=== PATIENT | female | born 1975 | race Caucasian/White ===

== ENCOUNTER 2018-08-04 11:44 | Inpatient (IN) | payer OTHER ==
[~2018-08-04] VITALS: Ht 162.6 cm; Wt 152.0 kg
[2018-08-04] VITALS (21 sets, daily range): BP systolic 127–165; BP diastolic 90–119
[2018-08-04] MEDS ORDERED: SODIUM CHLORIDE 0.9% 1000ML 1,000 ML IV STA (12:19)
[2018-08-04 13:06] LABS: BASOPHILS # (AUTO) 0.1 (0.0-0.1); BASOPHILS % 0.3 % (0.0-1.0); EOSINOPHILS # (AUTO) 0.5 (0.0-0.4); EOSINOPHILS % 1.7 % (0.0-6.0); HEMATOCRIT 28.9 % (34.2-44.1); HEMOGLOBIN 9.4 g/dL (12.0-16.0); LYMPHOCYTES % 3.6 % (18.0-39.1); MEAN CORPUSCULAR HEMOGLOBIN 29.2 pg (28-32); MEAN CORPUSCULAR HGB CONC 32.5 g/dL (31-35); MEAN CORPUSCULAR VOLUME 89.8 fL (81-99); MONOCYTES # (AUTO) 1.3 (0.2-0.8); MONOCYTES % 4.6 % (4.4-11.3); NEUTROPHILS % 86.7 % (38.7-80.0); PLATELET COUNT 520 x10e3/uL (140-360); RED BLOOD COUNT 3.22 x10e6/uL (3.6-5.1); RED CELL DISTRIBUTION WIDTH 14.1 % (11.7-14.4)
[2018-08-04 13:25] LABS: BAND NEUTROPHILS % (MANUAL) 2 %; EOSINOPHILS % (MANUAL) 2 % (0-7); LYMPHOCYTES % (MANUAL) 5 % (19-48); MONOCYTES % (MANUAL) 4 % (3.4-9.0); NEUTROPHILS % (MANUAL) 87 % (40-74); RBC MORPHOLOGY COMMENT NORMAL
[2018-08-04 13:26] LABS: PLATELET ESTIMATE ADEQUATE; PLATELET MORPHOLOGY COMMENT NORMAL
[2018-08-04 13:32] LABS: ALBUMIN 2.1 g/dL (3.5-5.0); ALBUMIN/GLOBULIN RATIO 0.4 (0.8-2.0); ANION GAP 31.8 mmol/L (8-16); CREATININE, SERUM 24.97 mg/dL (0.57-1.11); POTASSIUM 5.8 mmol/L (3.5-5.1)
[2018-08-04 13:42] LABS: CALCIUM 6.7 mg/dL (8.4-10.2)
[2018-08-04] MEDS ORDERED: SODIUM BICARBONATE 8.4% INJ 50 ML SYR IV STA (14:04)
--- NOTE | 2018-08-04 14:18 | Diagnostic Imaging Report ---
History: Altered mental status, slurred speech Comparison studies: None Technique: Axial images were obtained from the skull base to the vertex. Coronal and sagittal reconstructions obtained from the axial data. Dose modulation, iterative reconstruction, and/or weight based adjustment of the mA/kV was utilized to reduce the radiation dose to as low as reasonably achievable. Findings: Scalp/skull: No abnormalities. No fractures, blastic or lytic lesions. Extra-axial spaces: No masses. No fluid collections. Brain sulci: Appropriate for age. Ventricles: Normal in size and configuration. No hydrocephalus. Parenchyma: No abnormal densities. No masses, hemorrhage, acute or chronic cortical vascular insults. Sellar/suprasellar region: No abnormalities Craniocervical junction: Patent foramen magnum. No Chiari one malformation. IMPRESSION: No abnormalities. Signed by: Dr. Braden Lafleur M.D. on 08/04/2018 2:15 PM
--- NOTE | 2018-08-04 14:37 | Diagnostic Imaging Report ---
Examination: Single AP view of the chest. COMPARISON: None. INDICATION: Slurred speech, shortness of breath IMPRESSION: 1. Lines and Tubes: None 2. Lungs are grossly clear. No consolidation or effusion. 3. Cardiomediastinal silhouette is normal. Pulmonary vasculature is normal. 4. No acute bony abnormalities. Signed by: Dr. Connor Gilliam M.D. on 08/04/2018 2:33 PM
[2018-08-04] MEDS: SODIUM BICARBONATE 8.4% 150 ML in DEXTROSE 5% 1,000 ML IV SCH (15:41)
[2018-08-04 15:54] LABS: ABG HCO3 10 mmol/L (23-28); ABG PCO2 24 mmHg (41-51); ABG PH 7.25 (7.31-7.41); ABG PO2 89 mmHg (80-105)
[2018-08-04 16:02] LABS: CLARITY,URINE SL CLOUDY (CLEAR); COLOR,URINE YELLOW (YELLOW)
[2018-08-04 16:04] LABS: BILIRUBIN,URINE NEGATIVE (NEGATIVE); KETONES,URINE NEGATIVE (NEGATIVE); LEUKOCYTE ESTERASE ,URINE 2+ (NEGATIVE); NITRITE,URINE POSITIVE (NEGATIVE); PROTEIN,URINE DIPSTICK 3+ (NEGATIVE); URINE UROBILINOGEN 0.2 mg/dL (0.2 - 1)
--- NOTE | 2018-08-04 16:04 | Diagnostic Imaging Report ---
Examination: Single AP view of the chest. COMPARISON: Portable chest 08/04/2018 INDICATION: Central line placement IMPRESSION: 1. Lines and Tubes: Interval placement of right-sided subclavian approach central line, with distal tip projecting at the mid SVC. 2. Lungs are grossly clear. No consolidation or effusion. 3. Cardiomediastinal silhouette is normal. Pulmonary vasculature is normal. 4. No acute bony abnormalities. Signed by: Dr. Connor Gilliam M.D. on 08/04/2018 4:00 PM
[2018-08-04 16:10] LABS: AMPHETAMINES SCREEN,URINE NEGATIVE (NEGATIVE); PHENCYCLIDINE SCREEN,URINE NEGATIVE (NEGATIVE)
[2018-08-04 16:11] LABS: BENZODIAZEPINES SCREEN,URINE NEGATIVE (NEGATIVE)
[2018-08-04] MEDS ORDERED: SOD POLYSTYRENE SULFONATE SUSP 15 GM/60 ML BTL PO ONE (16:15)
[2018-08-04 16:22] LABS: WBC,URINE (MAN) >50 /HPF (0-5)
[2018-08-04 16:23] LABS: BACTERIA,URINE MODERATE /HPF; EPITHELIAL CELLS,URINE FEW /LPF; MUCUS,URINE FEW (RARE); RBC,URINE >50 /HPF (0-5)
[2018-08-04] MEDS ORDERED: MORPHINE SULFATE 2 MG/ML SYR IV PRN (17:00)
[2018-08-04] MEDS ORDERED: SODIUM BICARBONATE 8.4% SYRING 150 ML in DEXTROSE 5% 1,000 ML IV SCH (17:00)
[2018-08-04] MEDS ORDERED: ONDANSETRON HCL INJ 2 MG/ML VIAL IV PRN (17:00)
[2018-08-04] MEDS ORDERED: CEFTRIAXONE SOD 1 GM VIAL ONE (17:18)
--- OUTSIDE RECORDS SUMMARY | 2018-08-04 17:20 | XMS REPORT ---
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 Allergies, Adverse Reactions, Alerts This patient has no known allergies or adverse reactions. Medications This patient has no known medications. Results Test Description Test Time Test Comments Text Results Atomic Results Result Comments CHEST XRAY LINE PLACEMENT 2018-08-04 15:54:00 [place] [address] Patient Name: IRA BROCK MR #: [id number] : 1975 Age/Sex: 43/F Req #: [id number] [facility] Physician: Ordered by: YASMEEN FLORES MD Report #: [id number] Location: ER Room/Bed: Procedure: [id number] DX/CHEST XRAY LINE PLACEMENT Exam Date: 08/04/18 Exam Time: 1525 REPORT STATUS: Signed Examination: Single AP view of the chest. CO MPARISON: Portable chest 08/04/2018 INDICATION: Central line placement IMPRESSION: 1. Lines and Tubes: Interval placement of right-sided subclavian approach central line, with distal tip projecting at the mid SVC. 2. Lungs are grossly clear. No consolidation or effusion. 3. Cardiomediastinal silhouette is normal. Pulmonary vasculature is normal. 4. No acute bony abnormalities. Signed by: Angelo Mondragon.D. on 08/04/2018 4:00 PM Dictated By: MICHELINE GILLIAM MD 99 Transcribed By: BETH on 08/04/181599 COPY TO: YASMEEN FLORES MD CHEST SINGLE (PORTABLE) 2018-08-04 14:33:00 [place] [address] Patient Name: IRA BROCK MR #: [id number] : 1975 Age/Sex: 43/F Req #: [id number] Adm Physician: Ordered by: YASMEEN FLORES MD Report #: [id number] Location: ER Room/Bed: Procedure: [id number] DX/CHEST SINGLE (PORTABLE) Exam Date: 08/04/18 Exam Time: 1400 REPORT STATUS: Signed Examination: Single AP view of the chest. COMP ARISON: None. INDICATION: Slurred speech, shortness of breath IMPRESSION: 1. Lines and Tubes: None 2. Lungs are grossly clear. No consolidation or effusion. 3. Cardiomediastinal silhouette is normal. Pulmonary vasculature is normal. 4. No acute bony abnormalities. Signed by: Dr. Micheline Gilliam M.D. on 08/04/2018 2:33 PM Dictated By: MICHELINE GILLIAM MD 32 Transcribed By: BETH on 08/04/18 143 COPY TO: YASMEEN FLORES MD CT BRAIN WO 2018-08-04 14:14:00 [place] [address] Patient Name: IRA BROCK #: [id number] : 1975 Age/Sex: 43/F Req #: [id number] [facility] Physician: Ordered by: YASMEEN FLORES MD Report #: [id number] Location: Room/Bed: Procedure: [id number] CT/CT BRAIN WO Exam Date: Exam Time: REPORT STATUS: Signed History: Altered mental status, slurred speech Comparison studies: None Technique: Axial images were obtained from the skull base to the vertex. Coronal and sagittal reconstructions obtained from the axial data. Dose modulation, iterative reconstruction, and/or weight based adjustment of the mA/kV was utilized to reduce the radiation dose to as low as reasonably achievable. Findings: Scalp/skull: No abnormalities. No fractures, blastic or lytic lesions. Extra-axial spaces: No masses. No fluid collections. Brain sulci: Appropriate for age. Ventricles: Normal in size and configuration. No hydrocephalus. Parenchyma: No abnormal densities. No masses, hemorrhage, acute or chronic cortical vascular insults. Sellar/suprasellar region: No abnormalities Craniocervical junction: Patent foramen magnum. No Chiari one malformation. IMPRESSION: No abnormalities. Signed by: Dr. Braden Lafleur M.D. on 08/04/2018 2:15 PM Dictated By: BRADEN LAFLEUR MD, MD 14 Transcribed By: BETH on 08/04/181414 COPY TO: YASMEEN FLORES MD
[2018-08-04] MEDS: CEFTRIAXONE SOD 1 GM VIAL IV SCH (17:21)
--- NOTE | 2018-08-04 18:03 | Diagnostic Imaging Report ---
Examination: Single AP view of the chest. COMPARISON: Chest AP 08/04/2018 INDICATION: Trialysis insertion IMPRESSION: 1. Lines and Tubes: Interval placement of right-sided subclavian approach catheter, with distal tip projecting in the proximal SVC. 2. Lungs are grossly clear. No consolidation or effusion. No pneumothorax is visualized. 3. Cardiomediastinal silhouette is grossly normal. Pulmonary vasculature is normal. 4. No acute bony abnormalities. Signed by: Dr. Connor Gilliam M.D. on 08/04/2018 5:59 PM
[2018-08-04 18:13] LABS: THYROID STIMULATING HORMONE 8.73 uIU/mL (0.350-4.940)
[2018-08-04] MEDS ORDERED: BACLOFEN10 MG PO (18:37)
[2018-08-04] MEDS ORDERED: LEVOTHYROXINE50 MCG PO (18:37)
[2018-08-04] MEDS ORDERED: TYLENOL WITH C1 EACH PO (18:37)
[2018-08-04] MEDS ORDERED: GABAPENTIN300 MG PO (18:37)
--- NOTE | 2018-08-04 20:33 | Diagnostic Imaging Report ---
EXAM: CT ABDOMEN/PELVIS WO DATE: 08/04/2018 4:47 PM INDICATION: ^severe back pain acute renal failure uti ^[id number] ^2009 ^Y COMPARISON: None TECHNIQUE: The abdomen and pelvis were scanned using a multidetector helical scanner. Coronal and sagittal reformations were obtained. CT low dose techniques were utilized, as applicable. IV Contrast: 0 ml Isovue 300/370 FINDINGS: Lack of IV contrast decreases sensitivity in evaluating abdominal and pelvic organs. Image quality is degraded by photon starvation related to body habitus. LOWER THORAX: No consolidations LIVER/BILIARY: Unremarkable noncontrast appearance. GALLBLADDER: Surgically absent SPLEEN: Unremarkable PANCREAS: Unremarkable ADRENALS: No nodules KIDNEYS: No stones. No hydronephrosis. Nonspecific bilateral perinephric/retroperitoneal stranding. GI TRACT: No evidence of bowel obstruction. Diffuse fluid filled small bowel and colon. VESSELS: Unremarkable PERITONEUM/RETROPERITONEUM: No free air or fluid LYMPH NODES: There are scattered nonspecific prominent retroperitoneal nodes. REPRODUCTIVE ORGANS/BLADDER: Bladder is decompressed with a Moreno catheter. Pelvic organs grossly unremarkable. BONES: Scattered degenerative changes, worse at L5-S1. IMPRESSION: Evaluation degraded by lack of IV contrast and photon starvation. 1. No evidence of obstructive uropathy. 2. Findings which can be seen with enterocolitis in the proper clinical setting. Signed by: Dr Ness Sotelo MD on 08/04/2018 8:29 PM
--- NOTE | 2018-08-04 21:22 | Diagnostic Imaging Report ---
EXAM: US RENAL RETROPERITONEAL COMP INDICATION: ^ibeth vs ckd? ^[id number] ^1999 COMPARISON: None TECHNIQUE: Transverse and longitudinal images of the kidneys and bladder were obtained. FINDINGS: Sonographic evaluation and visualization is degraded by body habitus. Right Kidney: Length: 11.5 cm Appearance: Upper limits of normal echogenicity. Collecting system: No hydronephrosis Stones: None Cyst/Mass: None Left Kidney: Length: 11.4 cm Appearance: Upper limits of normal echogenicity. Collecting system: No hydronephrosis Stones: None Cyst/Mass: Questionable hypoechoic or cystic lesion of the left kidney measuring 1.6 x 2.0 x 1.8 cm. Bladder: Not visualized. Patient reportedly has a Moreno. IMPRESSION: Sonographic evaluation degraded by body habitus. 1. No hydronephrosis. Signed by: Dr Ness Sotelo MD on 08/04/2018 9:19 PM
[2018-08-04] MEDS ORDERED: SODIUM CHLORIDE 0.9% 1000ML 2,000 ML ONE (21:41)
[2018-08-04] MEDS ORDERED: MANNITOL 25% 12.5GM/50ML 100 ML ONE (21:51)
[2018-08-04] MEDS ORDERED: SODIUM CHLORIDE 0.9% 1000ML 1,000 ML IV PRN (22:00)
[2018-08-04] MEDS ORDERED: ALBUMIN 25% 12.5GM 0.25 GM/ML BTL IV PRN (22:00)
[2018-08-04] MEDS ORDERED: HEPARIN SOD (PORCINE) 5,000 UNIT/ML VIAL IV PRN (22:00)
[2018-08-04] MEDS ORDERED: MANNITOL 25% 12.5GM/50 ML VIAL IV PRN (22:00)
[2018-08-04] MEDS ORDERED: HEPARIN SOD (PORCINE) 1000 UNIT/ML SDV ONE (23:40)
[2018-08-05] VITALS (69 sets, daily range): BP systolic 103–196; BP diastolic 59–131
[2018-08-05] MEDS: SODIUM BICARBONATE 8.4% 150 ML in DEXTROSE 5% 1,000 ML IV SCH (01:59)
--- NOTE | 2018-08-05 02:07 | Consultation ---
DATE OF CONSULTATION: August 04, 2018 NEPHROLOGY CONSULTATION CHIEF COMPLAINT: Altered mental status. HISTORY OF PRESENT ILLNESS: This is a 43-year-old female morbidly obese with past medical history of chronic back pain, underlying hypothyroidism, who is very noncompliant in following up with her primary care physician at [facility], who comes in with altered mental status that has been ongoing since Monday of this week. According to the mother at bedside, she was recently seen by her PCP on Monday and was given significant amount of pain medications including gabapentin as well as a muscle relaxant and since then according to the mother, the patient has been very confused and and has not been eating or drinking. There are no reports of any chest pain, palpitation, nausea or vomiting. Patient is currently at bedside in the ICU, very dazed and minimally responsive. Patient last had labs about a year ago at [facility] but since then she has not had any other labs. There are no reports of any hematuria or any dysuria in the past. Patient was seen and evaluated at bedside in the ICU currently, altered and confused and on exam, vital signs were stable. REVIEW OF SYSTEMS: Pertinent positives: According to the mother, she has altered mental status and metabolic encephalopathy. I am unable to obtain the rest of the 14-point review of systems as the patient is currently confused. LAB FINDINGS: White count 27.6, hemoglobin 9.8, hematocrit 28.9, platelets of 520. Chemistry: Sodium 133, potassium is 5.8, chloride is 99, bicarb is 7, anion gap of 31.8, BUN 129, creatinine is 25, lactic acid 7.6, calcium 6.7, total bilirubin 0.48, AST 13, ALT 10, alk phos 82, total protein 6.8, albumin 2.1. TSH is 8.7. Urinalysis shows 4+ blood, positive nitrite, 3+ protein, greater than 50 rbc's, greater than 50 wbc's, 2+ leukocyte esterase, moderate bacteria. Urine drug screen was positive for opioids. Microbiology: Urine and blood cultures are pending. IMAGING STUDIES: Chest x-ray showed no acute findings. CT brain was negative. Repeat chest x-ray was found to be negative as well; this was post tunneled dialysis catheter. PHYSICAL EXAMINATION: VITAL SIGNS: Temperature is 98.3, pulse 103, respiratory rate is 18, blood pressure 146/94, pulse oximetry 98% on room air. GENERAL: Alert but not oriented at all. HEENT: Head is normocephalic and atraumatic. Eyes; pupils are equal, round and reactive to light bilaterally. Extraocular movements are intact bilaterally. Throat, no evidence of erythema or exudates in the posterior pharynx. Has poor dentition. NECK: Supple. Good range of motion. PULMONARY: Clear to auscultation bilaterally. No wheezing, no rales, no rhonchi, no crackles appreciated. CARDIOVASCULAR: Positive S1 and S2. No murmurs, rubs or gallops appreciated. ABDOMEN: Soft, nondistended, nontender to palpation. Bowel sounds are present. MUSCULOSKELETAL: Unable to assess. She is currently not responsive and not cooperative. NEUROLOGIC: Unresponsive and uncooperative. SKIN: Intact. Warm to touch. Good capillary refill. PSYCHIATRIC: Normal affect and mood. EXTREMITIES: No edema. Good range of motion throughout. IMPRESSION: 1. Metabolic encephalopathy likely due to underlying gabapentin and pain control as well as muscle relaxant that she was taking for chronic back pain. 2. Acute kidney injury versus chronic kidney disease, unknown etiology. 3. Anemia. 4. Metabolic acidosis. 5. Mild hyperkalemia. 6. Uremia. 7. Sepsis with unknown etiology. PLAN: At this time, it seems like the patient also has underlying sepsis with elevated white count as well. She is currently on IV Rocephin for possible UTI. In relation to renal, a tunneled dialysis catheter was placed and she will receive her first hemodialysis this evening as well as treatment in the morning. Patient's underlying encephalopathy could be from drug overdose which will be hopefully cleared with dialysis, and we will be able to evaluate her mental status. With the creatinine of 25, it is concerning that she may have underlying chronic disease as well as her hemoglobin being very low. She was given Kayexalate in the ER. She will receive hemodialysis with the blood flow rate of 200 mL per minute and dialysate flow rate 400 mL per minute, 2K bath, 3 calcium, UF of 0, duration 2 hours and repeat tomorrow in the morning. Use Mannitol 12.5 grams before and during treatment. We are going to monitor for urine output. I am going to get a renal ultrasound. There is no urine to get urine electrolytes and urine protein to creatinine at this time. Again, I do not know if this is chronic disease versus acute in nature, but I will be able to determine that over the next several days. Job#: [id number] SUNIL
[2018-08-05] MEDS ORDERED: HYDRALAZINE HCL 20 MG/ML VIAL IV PRN (03:45)
[2018-08-05 08:03] LABS: BASOPHILS % 0.1 % (0.0-1.0); EOSINOPHILS # (AUTO) 0.5 (0.0-0.4); EOSINOPHILS % 2.2 % (0.0-6.0); HEMOGLOBIN 7.4 g/dL (12.0-16.0); LYMPHOCYTES # (AUTO) 0.6 (1.0-3.2); MEAN CORPUSCULAR HEMOGLOBIN 28.6 pg (28-32); MEAN CORPUSCULAR HGB CONC 33.8 g/dL (31-35); MEAN CORPUSCULAR VOLUME 84.6 fL (81-99); MONOCYTES # (AUTO) 1.3 (0.2-0.8); MONOCYTES % 6.4 % (4.4-11.3); NEUTROPHILS # (AUTO) 17.9 (2.1-6.9); NEUTROPHILS % 85.9 % (38.7-80.0); PLATELET COUNT 407 x10e3/uL (140-360); RED BLOOD COUNT 2.59 x10e6/uL (3.6-5.1); RED CELL DISTRIBUTION WIDTH 13.7 % (11.7-14.4)
[2018-08-05 08:06] LABS: HEMATOCRIT 21.9 % (34.2-44.1)
[2018-08-05 08:24] LABS: ALBUMIN 1.6 g/dL (3.5-5.0); ALBUMIN/GLOBULIN RATIO 0.4 (0.8-2.0); ANION GAP 23.4 mmol/L (8-16); CREATININE, SERUM 18.41 mg/dL (0.57-1.11); POTASSIUM 3.4 mmol/L (3.5-5.1)
[2018-08-05 08:26] LABS: CALCIUM 6.2 mg/dL (8.4-10.2)
[2018-08-05] MEDS ORDERED: SODIUM CHLORIDE 0.9% 250ML 250 ML IV ONE (09:45)
[2018-08-05] MEDS ORDERED: CALCIUM GLUCONATE 10% INJ 9.3 MEQ in SODIUM CHLORIDE 0.9% 100 ML 100 ML IV ONE (10:00)
[2018-08-05 10:03] LABS: BAND NEUTROPHILS % (MANUAL) 2 %; EOSINOPHILS % (MANUAL) 4 % (0-7); LYMPHOCYTES % (MANUAL) 5 % (19-48); MONOCYTES % (MANUAL) 4 % (3.4-9.0); NEUTROPHILS % (MANUAL) 85 % (40-74)
[2018-08-05 10:04] LABS: PLATELET ESTIMATE MODERATELY INCREASED; PLATELET MORPHOLOGY COMMENT NORMAL; RBC MORPHOLOGY COMMENT NORMAL
[2018-08-05] MEDS: LEVOTHYROXINE SODIUM 75 MCG TAB PO SCH (11:30)
[2018-08-05 11:54] LABS: FERRITIN 376.87 ng/mL (4.63-204.00)
[2018-08-05 12:13] LABS: HIV 1&2 AB SCREEN NON-REACTIVE (NONREACTIVE)
--- NOTE | 2018-08-05 12:47 | Progress Note ---
DATE: August 05, 2018 NEPHROLOGY PROGRESS NOTE SUBJECTIVE: Patient is much more alert and oriented x3 on exam today. She did receive her first HD treatment last night and which she tolerated well. OBJECTIVE VITAL SIGNS: Temperature is 99, pulse is 102, respiratory rate is 18, blood pressure 149/89, pulse ox 100% on 3 L nasal cannula. LAB FINDINGS: Show a white count of 20.7, hemoglobin 7.4, hematocrit is 22, platelets of 407. Chemistry, sodium 140, potassium 3.4, chloride 98, bicarb 22, anion gap of 23, BUN 98, creatinine is 18.4, lactic acid 7.6, calcium is 6.2, total bilirubin is 0.5, AST is 13, ALT 6, alk phos 113. Ammonia level was 73, total protein 5.2, albumin is 1.6, TSH 8.7. MICROBIOLOGY: Blood and urine cultures are pending. IMAGING STUDIES: CT abdomen and pelvis showed no evidence of obstructive uropathy. There is evidence of some minimal colitis. Otherwise, no other acute findings seen. PHYSICAL EXAMINATION GENERAL: Not in acute distress, alert and oriented x3, cooperative on exam. HEENT: Head: Normocephalic, atraumatic. Eyes: Pupils equal, round, and reactive to light bilaterally. Extraocular movements intact bilaterally. Throat: No evidence of any erythema or exudates in the posterior pharynx. Has poor dentition. NECK: Supple with good range of motion. PULMONARY: Clear to auscultation bilaterally. No wheezing, no rales, no rhonchi, no crackles appreciated. CARDIOVASCULAR: Positive S1 and S2. No murmurs, rubs, or gallops appreciated. ABDOMEN: Soft, nondistended, nontender to palpation. Bowel sounds present. MUSCULOSKELETAL: Strength is 5/5 throughout. No evidence of any musculoskeletal deficit on examination. No weakness appreciated. NEUROLOGICAL: Cranial nerves II through XII are grossly intact. No evidence of any neurological deficits on exam. SKIN: Intact. Warm to touch. Good cap refill. PSYCHIATRIC: Normal affect and mood. EXTREMITIES: 2+ pedal edema in bilateral lower extremities. IMPRESSION 1. Metabolic encephalopathy, concern for lichen polypharmacy. 2. Acute kidney injury versus chronic kidney disease, stage 5. 3. Anemia. 4. Metabolic acidosis. 5. Hyperkalemia, resolved. 6. Uremia. 7. Sepsis, possible underlying refraction, unknown etiology. 8. Hypoalbuminemia. PLAN: At this time, looking at her albumin level of 1.6, concerns me that the patient likely has some underlying nephrotic-range proteinuria; and currently, I do not know exactly what she currently has. I have on labs to compare in which tomorrow we are going to contact [facility] to see if there were any labs in the last 1 year. Her urine output is 0. I am unable to quantify her urine protein to creatinine or microalbumin to creatinine. At this time, I will order several serologies including double-stranded DNA, anti-GBM, p-ANCA and c-ANCA complements as well as scleroderma, hepatitis panel, HIV panel, and repeat labs in the morning. I will also get a UA with microscopy to rule out any kind of cast, but currently there is no urine, urine protein to creatinine, microalbumin to creatinine ratio. In terms of her anemia, we are going to get ferritin, iron saturation, and TIBC. In relation to her bone mineral disease, I am going to get intact PTH, phosphorus levels, and vitamin D level. We are going to stop the bicarb drip as her bicarb is much improved. Her potassium improved as well. She will receive dialysis later today with a 3K bath, 3.5 calcium, duration is going to be 2.5 hours, UF of 2 L, bicarb of 35, and we will give dialysis tomorrow again. Some time later this week, we may consider getting a renal biopsy, but she may be a very difficult candidate due to her morbid obesity and difficulty to get a biopsy performed. I will discuss this with the IR later this week. She will also get Mannitol pre and during treatment on HD today. Otherwise, I discussed the overall plan of care with the mother and patient at bedside. Job#: [id number] LPA
--- NOTE | 2018-08-05 14:34 | History and Physical ---
CHIEF COMPLAINT: Shortness of breath, acute renal failure, altered mental status, and uremia. HISTORY OF PRESENT ILLNESS: Patient is a 43-year-old female, who came into the hospital with altered mental status and very confused. The patient was in severe metabolic acidosis. She is at baseline with only hypothyroidism. The patient has unknown history of kidney failure, but when she came in she has profound kidney failure with uremia, hyperkalemia associated with metabolic acidosis, and a Moreno catheter was placed. There was no urine output. Patient is morbidly obese. She just recently saw her primary care physician and because of the complain of lower back pain, she went and saw pain management. She was given gabapentin, Tylenol Number 3, and muscle relaxer. Those medications may contribute to some confusion, but her medication side effect no significant on renal failure. The patient does not have a known renal failure in the past, but again her last blood work was at [facility] in [place] greater than a year ago. The patient is otherwise stable and admitted to the ICU for further evaluation and treatment. Dialysis will be initiated. PAST MEDICAL HISTORY: Morbid obesity, osteoarthritis, hypothyroidism. PAST SURGICAL HISTORY: Noncontributory. SOCIAL HISTORY: Patient lives with her mother. She does not smoke or use alcohol. No illegal drugs. ALLERGIES: PENICILLIN. HOME MEDICATIONS: Levothyroxine, gabapentin, Tylenol Number 3, and Flexeril. PHYSICAL EXAMINATION VITAL SIGNS: Temperature is 98. Blood pressure 165/102, pulse rate 111, and respiration 20. GENERAL: The patient is confused, but awake. HEENT: Normocephalic, atraumatic, and anicteric. NECK: Supple grossly. PULMONARY: Diminished breath sounds bilaterally. CARDIOVASCULAR: S1, S2. Tachycardia. ABDOMEN: Morbidly obese. EXTREMITIES: No cyanosis or edema. NEUROLOGIC: Confusion. LABORATORY: WBC 27.6, hemoglobin 9.4, hematocrit 28.9, and platelets 520. Chemistries; sodium is 132, potassium 5.8, chloride 99, bicarb 7, BUN is 129, creatinine 25, glucose is 82. Calcium level is 6.7, lactic acid level was 7.6, TSH is 8.7, and ammonia level is 73. Toxicology negative other than positive for opioid screen. Urinalysis is 2+ leukocyte esterase, greater than 50 WBCs, moderate bacteria. Serology, hepatitis pending. IMAGING: Abdominal and pelvic CT scan that was done show no evidence of obstructive uropathy. Chest x-ray, no acute bony abnormality. Line and tube in place. Pulmonary vasculature is normal. IMPRESSION 1. End-stage renal disease. We will require initiation of dialysis. The etiology of renal failure is unknown at this time. 2. Morbidly obese. 3. Hypothyroidism. 4. Hypertensive urgency. 5. Severe metabolic acidosis. 6. Multiple chronic baseline problems. PLAN: Dialysis. Workup for renal failure. Supportive measures. Antibiotics. We will monitor the patient closely at this time. Job#: [id number] WILBER
[2018-08-05] MEDS ORDERED: HEPARIN SOD (PORCINE) 1000 UNIT/ML SDV ONE (14:39)
[2018-08-05] MEDS: NIFEDIPINE CR 30 MG TAB PO SCH (16:30)
[2018-08-05] MEDS ORDERED: DOCUSATE SODIUM LIQD 100 MG/10 ML UDC NG ONE (17:00)
[2018-08-05] MEDS: CEFTRIAXONE SOD 1 GM VIAL IV SCH (17:45)
[2018-08-05] MEDS: HEPARIN SOD (PORCINE) 5,000 UNIT/ML VIAL SC SCH (21:10)
[2018-08-05 21:22] LABS: CLARITY,URINE CLOUDY (CLEAR); COLOR,URINE YELLOW (YELLOW); KETONES,URINE NEGATIVE (NEGATIVE); LEUKOCYTE ESTERASE ,URINE 2+ (NEGATIVE); NITRITE,URINE NEGATIVE (NEGATIVE); PROTEIN,URINE DIPSTICK 3+ (NEGATIVE); URINE UROBILINOGEN 0.2 mg/dL (0.2 - 1)
[2018-08-05 21:23] LABS: BILIRUBIN,URINE NEGATIVE (NEGATIVE)
[2018-08-05 21:34] LABS: BACTERIA,URINE MANY /HPF; EPITHELIAL CELLS,URINE RARE /LPF; WBC,URINE (MAN) >50 /HPF (0-5)
[2018-08-05 21:53] LABS: TOTAL PROTEIN, URINE 1910.9 mg/dL (1-14)
[2018-08-06] VITALS (63 sets, daily range): BP systolic 101–156; BP diastolic 57–105
[2018-08-06 05:00] LABS: ALBUMIN 1.6 g/dL (3.5-5.0); ALBUMIN/GLOBULIN RATIO 0.4 (0.8-2.0); ANION GAP 23.6 mmol/L (8-16); CHOL/HDL RATIO 2.8 (3.0-3.6); CREATININE, SERUM 15.23 mg/dL (0.57-1.11); PHOSPHORUS 9.4 MG/DL (2.3-4.7); POTASSIUM 3.6 mmol/L (3.5-5.1)
[2018-08-06 05:20] LABS: CALCIUM 6.6 mg/dL (8.4-10.2)
[2018-08-06] MEDS: LEVOTHYROXINE SODIUM 75 MCG TAB PO SCH (05:38)
[2018-08-06] MEDS ORDERED: HEPARIN SOD (PORCINE) 1000 UNIT/ML SDV IV PRN (08:45)
[2018-08-06] MEDS ORDERED: MANNITOL 25% 12.5GM/50 ML VIAL IV PRN (08:45)
[2018-08-06] MEDS ORDERED: SODIUM CHLORIDE 0.9% 1000ML 2,000 ML IV PRN (08:45)
[2018-08-06] MEDS ORDERED: HEPARIN SOD (PORCINE) 1000 UNIT/ML SDV ONE (08:46)
[2018-08-06] MEDS ORDERED: SODIUM CHLORIDE 0.9% 1000ML 2,000 ML ONE (08:47)
[2018-08-06 09:28] LABS: BASOPHILS # (AUTO) 0.1 (0.0-0.1); BASOPHILS % 0.2 % (0.0-1.0); EOSINOPHILS # (AUTO) 0.3 (0.0-0.4); HEMATOCRIT 28.3 % (34.2-44.1); HEMOGLOBIN 9.5 g/dL (12.0-16.0); LYMPHOCYTES # (AUTO) 0.9 (1.0-3.2); LYMPHOCYTES % 3.1 % (18.0-39.1); MEAN CORPUSCULAR HEMOGLOBIN 28.7 pg (28-32); MEAN CORPUSCULAR HGB CONC 33.6 g/dL (31-35); MEAN CORPUSCULAR VOLUME 85.5 fL (81-99); MONOCYTES # (AUTO) 1.8 (0.2-0.8); MONOCYTES % 6.5 % (4.4-11.3); NEUTROPHILS # (AUTO) 24.3 (2.1-6.9); PLATELET COUNT 377 x10e3/uL (140-360); RED BLOOD COUNT 3.31 x10e6/uL (3.6-5.1); RED CELL DISTRIBUTION WIDTH 14.3 % (11.7-14.4)
--- NOTE | 2018-08-06 10:58 | Progress Note ---
DATE: August 06, 2018 NEPHROLOGY PROGRESS NOTE SUBJECTIVE: Patient is currently doing well. She received hemodialysis today. She is still anuric. No overnight events. OBJECTIVE VITAL SIGNS: Temperature is 99.6, pulse is 112, respiratory rate is 16, blood pressure is 110/64, and pulse ox 95% on 2 L nasal cannula. GENERAL: Not in acute distress. Alert and oriented times 3. Cooperative on examination. HEENT: Head is normocephalic and atraumatic. Eyes: Pupils equal, round and reactive to light bilaterally. Extraocular movements intact bilaterally. NECK: Supple. Good range of motion. Throat with no evidence of any erythema or exudates in the posterior pharynx. Has poor dentition. PULMONARY: Clear to auscultation bilaterally. No wheezing. No rales. No rhonchi. No crackles appreciated. CARDIOVASCULAR: Positive S1 and S2. No murmurs, rubs or gallops appreciated. ABDOMEN: Soft, nondistended and nontender to palpation. Bowel sounds present. MUSCULOSKELETAL: Strength is 5/5 throughout. No evidence of any muscle deficit on examination. No weakness appreciated. NEUROLOGICAL: Cranial nerves II-XII are grossly intact. No evidence of any neurological deficits on exam. SKIN: Intact. Warm to touch. Good cap refill. PSYCHIATRIC: Normal affect and mood. EXTREMITIES: Has 2+ pedal edema. LAB FINDINGS: Show a white count is 28, hemoglobin 9.5, hematocrit 28.3, MCV is 85, and platelets of 377,000. Chemistry: Sodium is 138, potassium 3.6, chloride 96, bicarb 22, anion gap of 23, BUN is 82, creatinine is 15.2, glucose is 112. Hemoglobin A1c is 4.9. Calcium is 6.6. Phosphorus is 9.4. Iron saturation is 29%. Albumin is 1.6. Several serologies, SPEP, U-PEP all pending. Vitamin D level pending. TSH was 3. Parathyroid hormone is pending. Urinalysis shows 17 g of urine protein to creatinine. Microalbumin to creatinine is pending. C-ANCA, P-ANCA, MARTA, anti-GBM, double-stranded DNA complements all pending. MICROBIOLOGY: Cultures are negative. IMPRESSION 1. Metabolic encephalopathy, now improving. 2. Acute kidney injury versus chronic kidney disease, stage 5: Likely to be end-stage. 3. Iron deficiency anemia. 4. Metabolic acidosis. 5. Hyperkalemia, resolved. 6. Uremia. 7. Sepsis secondary to possibly underlying infection. 8. Hypoalbuminemia. PLAN: At this time, she is receiving HD treatment #3 with a flow rate of 300 mL per minute and at 600 mL per minute. She is on a 3K, 3 calcium bath, bicarb 35, duration of 3 hours. Mannitol 4.5 g before and during treatment with a duration of 3 hours. She is still anuric. There are pending several serologies at this time. Her phosphorus is stable and fine, which I will start her on Renvela as well. She will likely need more dialysis tomorrow. We are going to request records from [facility]. If there is evidence of some chronic disease, then likely the patient is going to be end-stage. If no evidence of chronic disease, the patient will likely need a biopsy if possible since the patient is morbidly obese, which may be difficult, which I need to discuss this with IR. At this time, will continue the same plan of care and get dialysis tomorrow. Job#: [id number] ELIECER
[2018-08-06 12:56] LABS: LYMPHOCYTES % (MANUAL) 2 % (19-48); MONOCYTES % (MANUAL) 8 % (3.4-9.0); NEUTROPHILS % (MANUAL) 90 % (40-74); PLATELET ESTIMATE ADEQUATE; PLATELET MORPHOLOGY COMMENT NORMAL
[2018-08-06] MEDS: SEVELAMER CARBONATE 800 MG TAB PO SCH ×2 (14:00→18:15)
[2018-08-06] MEDS: HEPARIN SOD (PORCINE) 5,000 UNIT/ML VIAL SC SCH ×2 (14:01→21:34)
[2018-08-06] MEDS: NIFEDIPINE CR 30 MG TAB PO SCH (14:32)
[2018-08-06] MEDS ORDERED: MORPHINE SULFATE INJ 4 MG/ML INJ IV PRN (16:00)
[2018-08-06 16:44] LABS: ANION GAP 19.5 mmol/L (8-16); CALCIUM 7.8 mg/dL (8.4-10.2); CREATININE, SERUM 9.78 mg/dL (0.57-1.11); POTASSIUM 3.5 mmol/L (3.5-5.1)
[2018-08-06] MEDS: CEFTRIAXONE SOD 1 GM VIAL IV SCH (17:27)
[2018-08-07] VITALS (8 sets, daily range): BP systolic 123–144; BP diastolic 67–79
[2018-08-07] MEDS: LEVOTHYROXINE SODIUM 75 MCG TAB PO SCH (05:13)
[2018-08-07] MEDS: SEVELAMER CARBONATE 800 MG TAB PO SCH (08:00)
[2018-08-07] MEDS: NIFEDIPINE CR 30 MG TAB PO SCH (09:00)
[2018-08-07] MEDS: HEPARIN SOD (PORCINE) 5,000 UNIT/ML VIAL SC SCH ×2 (09:00→20:55)
[2018-08-07] MEDS ORDERED: SODIUM FERRIC GLUCONATE COMPLX 125 MG in SODIUM CHLORIDE 0.9% 100 ML 100 ML IV SCH (09:45)
--- NOTE | 2018-08-07 11:07 | Progress Note ---
DATE: August 07, 2018 NEPHROLOGY PROGRESS NOTE SUBJECTIVE: Patient is doing well today with no complaints. She has no urine output. We are still waiting on the records from [facility]. Her white count is elevated at 28. She is otherwise tolerating diet well with no other complaints. OBJECTIVE VITAL SIGNS: Temperature is 97.8, pulse is 108, respiratory rate is 17, blood pressure 144/72, pulse ox 95% on room air. GENERAL: Not in acute distress. Alert and oriented times 3. Cooperative on examination. HEENT: Head is normocephalic and atraumatic. Eyes: Pupils equal, round and reactive to light bilaterally. Extraocular movements intact bilaterally. NECK: Supple. Good range of motion. Throat with no evidence of any erythema or exudates in the posterior pharynx. Has poor dentition. PULMONARY: Clear to auscultation bilaterally. No wheezing. No rales. No rhonchi. No crackles appreciated. CARDIOVASCULAR: Positive S1 and S2. No murmurs, rubs or gallops appreciated. ABDOMEN: Soft, nondistended and nontender to palpation. Bowel sounds present. MUSCULOSKELETAL: Strength is 5/5 throughout. No evidence of any muscle deficit on examination. No weakness appreciated. NEUROLOGICAL: Cranial nerves II-XII are grossly intact. No evidence of any neurological deficits on exam. SKIN: Intact. Warm to touch. Good cap refill. PSYCHIATRIC: Normal affect and mood. EXTREMITIES: No edema. Good range of motion throughout. LAB FINDINGS: Show white count is 28, hemoglobin is 9.5, hematocrit is 28, and platelets are 377,000. Chemistry: Sodium is 139, potassium 3.5, chloride 96, bicarb 27, anion gap of 19.5, BUN 47, creatinine is 9.7, glucose is 127. Calcium is 7.8. S-PEP and U-PEP all pending. Parathyroid hormone is pending. C3 is 115. C4 is 31. P-ANCA, C-ANCA, double-stranded DNA all pending. MARTA pending. IMAGING STUDIES: Renal ultrasound shows a cystic lesion in the left kidney, 1.62 x 1.8 cm. Otherwise, no hydronephrosis. The right kidney is 11.5 cm and left kidney is 11.4 cm. IMPRESSION 1. Metabolic encephalopathy, now improving. 2. Chronic kidney disease, stage 5, likely to have end-stage renal disease. 3. Iron deficiency anemia. 4. Metabolic acidosis. 5. Hyperkalemia. 6. Uremia. 7. Sepsis secondary to underlying infection with leukocytosis. 8. Hypoalbuminemia with 17 g of proteinuria. PLAN: At this time, she will get HD treatment tomorrow on a MWF schedule. She is still anuric. Her electrolytes are stable today. We are still pending several serologies. I am changing the Renvela to PhosLo due to her low hypocalcemia. I will also add some Tums 500 mg p.o. b.i.d. times 2 doses. I am awaiting records from [facility] for her labs from the last 1 year. Will also arrange for an outpatient dialysis unit, which I have discussed with case management. Will also discuss with radiology about doing a renal biopsy if able. Due to the patient's body habitus, it may be very difficult. I discussed this plan of care with the patient and the mother at bedside. Job#: [id number] ELIECER
[2018-08-07] MEDS: CALCIUM ACETATE 667 MG GELCAP PO SCH ×2 (15:00→20:55)
[2018-08-07] MEDS: CALCIUM CARBONATE 500 MG CHEWABLE TABS PO SCH (17:00)
[2018-08-07] MEDS: CEFTRIAXONE SOD 1 GM VIAL IV SCH (17:30)
[2018-08-08] VITALS (7 sets, daily range): BP systolic 122–158; BP diastolic 65–85
[2018-08-08] MEDS: LEVOTHYROXINE SODIUM 75 MCG TAB PO SCH (05:13)
[2018-08-08 05:17] LABS: BASOPHILS # (AUTO) 0.2 (0.0-0.1); BASOPHILS % 0.5 % (0.0-1.0); EOSINOPHILS # (AUTO) 1.1 (0.0-0.4); EOSINOPHILS % 3.3 % (0.0-6.0); HEMATOCRIT 28.1 % (34.2-44.1); HEMOGLOBIN 9.4 g/dL (12.0-16.0); LYMPHOCYTES # (AUTO) 1.3 (1.0-3.2); MEAN CORPUSCULAR HEMOGLOBIN 28.9 pg (28-32); MEAN CORPUSCULAR HGB CONC 33.5 g/dL (31-35); MEAN CORPUSCULAR VOLUME 86.5 fL (81-99); MONOCYTES # (AUTO) 1.8 (0.2-0.8); MONOCYTES % 5.5 % (4.4-11.3); NEUTROPHILS # (AUTO) 26.9 (2.1-6.9); NEUTROPHILS % 81.3 % (38.7-80.0); PLATELET COUNT 284 x10e3/uL (140-360); RED BLOOD COUNT 3.25 x10e6/uL (3.6-5.1); RED CELL DISTRIBUTION WIDTH 14.1 % (11.7-14.4)
[2018-08-08 05:40] LABS: ANION GAP 19.9 mmol/L (8-16); CREATININE, SERUM 11.06 mg/dL (0.57-1.11); POTASSIUM 3.9 mmol/L (3.5-5.1)
[2018-08-08] MEDS: CALCIUM CARBONATE 500 MG CHEWABLE TABS PO SCH (08:00)
[2018-08-08 08:09] LABS: BAND NEUTROPHILS % (MANUAL) 3 %; EOSINOPHILS % (MANUAL) 4 % (0-7); LYMPHOCYTES % (MANUAL) 2 % (19-48); METAMYELOCYTES % (MANUAL) 2 % (0-0); MONOCYTES % (MANUAL) 7 % (3.4-9.0); NEUTROPHILS % (MANUAL) 82 % (40-74); PLATELET ESTIMATE ADEQUATE; PLATELET MORPHOLOGY COMMENT NORMAL; RBC MORPHOLOGY COMMENT NORMAL
[2018-08-08] MEDS ORDERED: AZTREONAM 1 GM VIAL IV SCH (08:40)
[2018-08-08] MEDS: HEPARIN SOD (PORCINE) 5,000 UNIT/ML VIAL SC SCH ×2 (09:00→21:00)
--- NOTE | 2018-08-08 10:27 | Progress Note ---
DATE: August 08, 2018 NEPHROLOGY PROGRESS NOTE SUBJECTIVE: Patient is much more alert, awake and talking . She has no other issues at this time. She is still anuric. OBJECTIVE VITAL SIGNS: Temperature is 98.7, pulse 99, respiratory rate 20, blood pressure 135/73, pulse ox 98% on 2 L nasal cannula. GENERAL: Not in acute distress. Alert and oriented times 3. Cooperative on examination. HEENT: Head is normocephalic and atraumatic. Eyes: Pupils equal, round and reactive to light bilaterally. Extraocular movements intact bilaterally. NECK: Supple. Good range of motion. Throat with no evidence of any erythema or exudates in the posterior pharynx. Has poor dentition. PULMONARY: Clear to auscultation bilaterally. No wheezing. No rales. No rhonchi. No crackles appreciated. CARDIOVASCULAR: Positive S1 and S2. No murmurs, rubs or gallops appreciated. ABDOMEN: Soft, nondistended and nontender to palpation. Bowel sounds present. MUSCULOSKELETAL: Strength is 5/5 throughout. No evidence of any muscle deficit on examination. No weakness appreciated. NEUROLOGICAL: Cranial nerves II-XII are grossly intact. No evidence of any neurological deficits on exam. SKIN: Intact. Warm to touch. Good cap refill. PSYCHIATRIC: At baseline. EXTREMITIES: Has 2+ pedal edema. LAB FINDINGS: Show a white count of 33, hemoglobin 9.1, hematocrit is 28, and platelets of 284,000. Chemistry: Sodium 133, potassium 3.9, chloride 93, bicarb 24, anion gap of 19, BUN 68, creatinine is 11, glucose is 89. Calcium is 8. Folate is 3. U-PEP and S-PEP are pending. There is 17 g of proteinuria. Her MARTA is negative. P-ANCA and C-ANCA negative. DNA double-strand is negative. Anti-GBM is pending. C3 and C4 normal. S-PEP is pending. HIV negative. Hepatitis panel negative. MICROBIOLOGY: No growth on blood or urine cultures. IMPRESSION 1. Metabolic encephalopathy: Now improving. 2. Chronic kidney disease, stage 5: Likely end-stage renal disease. 3. Iron deficiency anemia. 4. Metabolic acidosis. 5. Mild hypokalemia, resolved. 6. Uremia. 7. Sepsis secondary to underlying infection with elevated white count and leukocytosis. 8. Hypoalbuminemia. 9. Proteinuria. PLAN: At this time, I have discussed this with IR. They are going to attempt tomorrow to do a renal biopsy to determine this patient's etiology, but the patient is morbidly obese. It may be very difficult to perform, but the radiologist will attempt and see if he is able to perform it. I have already placed an order for IR to perform tomorrow. She will have HD today of 3.5 hours as the duration. I have discussed this yesterday also with the dialysis nurse. Will continue with PhosLo for phos binders. She is on a renal diet. We still did not get any records from [facility]. According to the mother, she used to see Dr. Tristian Haas, and will get records from there to see what was her renal function or any labs over the last 1-2 years, which will be very helpful in this case. Right now, the etiology of her renal failure is unknown. Still pending S-PEP, U-PEP and several other serologies. Job#: [id number] ELIECER
[2018-08-08 11:09] LABS: INR 1.13; PROTHROMBIN TIME 15.5 seconds (11.9-14.5)
[2018-08-08 11:10] LABS: PARTIAL THROMBOPLASTIN TIME 49.5 seconds (23.8-35.5)
[2018-08-08] MEDS ORDERED: AZTREONAM (AZACTAM) 0.5 GM in WATER STERILE 10ML VIAL 10 ML IV SCH (14:00)
[2018-08-08] MEDS: NIFEDIPINE CR 30 MG TAB PO SCH (18:10)
[2018-08-08] MEDS: CALCIUM ACETATE 667 MG GELCAP PO SCH ×3 (18:10→21:00)
[2018-08-08] MEDS ORDERED: SODIUM CHLORIDE 0.9% 250ML 250 ML ONE (20:48)
[2018-08-08] MEDS: SODIUM FERRIC GLUCONATE COMPLX 125 MG in SODIUM CHLORIDE 0.9% 100 ML 100 ML IV SCH (20:50)
[2018-08-08] MEDS: AZTREONAM 1 GM VIAL IV SCH (21:10)
[2018-08-09] VITALS: BP 140/85
[2018-08-09] MEDS: AZTREONAM 1 GM VIAL IV SCH ×3 (03:40→21:20)
[2018-08-09 04:00] VITALS: BP 109/68
[2018-08-09 04:48] LABS: BASOPHILS # (AUTO) 0.1 (0.0-0.1); BASOPHILS % 0.4 % (0.0-1.0); EOSINOPHILS # (AUTO) 1.1 (0.0-0.4); HEMATOCRIT 26.5 % (34.2-44.1); HEMOGLOBIN 8.7 g/dL (12.0-16.0); LYMPHOCYTES # (AUTO) 1.2 (1.0-3.2); LYMPHOCYTES % 4.3 % (18.0-39.1); MEAN CORPUSCULAR HEMOGLOBIN 28.9 pg (28-32); MEAN CORPUSCULAR HGB CONC 32.8 g/dL (31-35); MONOCYTES # (AUTO) 1.7 (0.2-0.8); MONOCYTES % 6.3 % (4.4-11.3); NEUTROPHILS # (AUTO) 21.2 (2.1-6.9); NEUTROPHILS % 77.1 % (38.7-80.0); PLATELET COUNT 237 x10e3/uL (140-360); RED BLOOD COUNT 3.01 x10e6/uL (3.6-5.1); RED CELL DISTRIBUTION WIDTH 14.2 % (11.7-14.4)
[2018-08-09] MEDS: LEVOTHYROXINE SODIUM 75 MCG TAB PO SCH (05:20)
[2018-08-09 07:41] LABS: BAND NEUTROPHILS % (MANUAL) 3 %; EOSINOPHILS % (MANUAL) 4 % (0-7); LYMPHOCYTES % (MANUAL) 4 % (19-48); METAMYELOCYTES % (MANUAL) 1 % (0-0); MONOCYTES % (MANUAL) 2 % (3.4-9.0); NEUTROPHILS % (MANUAL) 85 % (40-74)
[2018-08-09 07:42] LABS: PLATELET ESTIMATE ADEQUATE; PLATELET MORPHOLOGY COMMENT NORMAL; RBC MORPHOLOGY COMMENT NORMAL
[2018-08-09 08:09] VITALS: BP 132/79
[2018-08-09] MEDS ORDERED: LIDOCAINE HCL 1% LOCAL INJ 20 ML VIAL ONE (08:26)
[2018-08-09] MEDS: CALCIUM ACETATE 667 MG GELCAP PO SCH ×3 (09:00→22:01)
[2018-08-09] MEDS: NIFEDIPINE CR 30 MG TAB PO SCH (09:00)
[2018-08-09] MEDS: HEPARIN SOD (PORCINE) 5,000 UNIT/ML VIAL SC SCH ×2 (09:00→21:20)
--- NOTE | 2018-08-09 11:01 | Progress Note ---
DATE: August 09, 2018 NEPHROLOGY PROGRESS NOTE SUBJECTIVE: Patient is doing well, sitting in her chair today with no issues. She is scheduled for dialysis later today. She is also scheduled for a renal biopsy, CT guided, later today, if they are able to perform it. Still waiting on records from [facility] and her primary care physician in the past, Dr. Haas. OBJECTIVE VITAL SIGNS: Temperature is 97.3, pulse 100, respiratory rate 18, blood pressure 132/79, pulse ox 94% on 2 L nasal cannula. LAB FINDINGS: White count 27, hemoglobin 8.7, hematocrit 26.5, platelets 237. Coagulation: PT 15, INR 1.1, PTT 49.5. Chemistries: Sodium 133, potassium 3.9, chloride 93, bicarb 24, anion gap 19, BUN 68, creatinine 11, glucose 89, calcium 8. Several of her serologies have been back. Her anti-GBM was elevated at 105. Her pANCA, cANCA, double-stranded DNA were all negative. UPEP and SPEP are all pending. MARTA was negative. HIV negative. Hepatitis panel pending. MICROBIOLOGY: Cultures were negative. IMAGING STUDIES: None. PHYSICAL EXAMINATION GENERAL: Not in acute distress. Alert and oriented times 3. Cooperative on examination. HEENT: Head is normocephalic and atraumatic. Eyes: Pupils are equal, round and reactive to light bilaterally. Extraocular movements are intact bilaterally. NECK: Supple. Good range of motion. Throat with no evidence of any erythema or exudates in the posterior pharynx. Has poor dentition. PULMONARY: Clear to auscultation bilaterally. No wheezing, no rales, no rhonchi, no crackles appreciated. CARDIOVASCULAR: Positive S1 and S2. No murmurs, rubs or gallops appreciated. ABDOMEN: Soft, nondistended and nontender to palpation. Bowel sounds present. MUSCULOSKELETAL: Strength is 5/5 throughout. No evidence of any muscle deficit on examination. No weakness appreciated. NEUROLOGICAL: Cranial nerves II through XII are grossly intact. No evidence of any neurological deficits on exam. SKIN: Intact. Warm to touch. Good cap refill. PSYCHIATRIC: Normal affect and mood. EXTREMITIES: No edema. Good range of motion throughout. IMPRESSION 1. Metabolic encephalopathy, resolved. 2. Chronic kidney disease, stage 5, likely to be end-stage renal disease. 3. Iron deficiency anemia. 4. Metabolic acidosis. 5. Mild hyperkalemia, resolved. 6. Uremia. 7. Sepsis secondary to underlying infection with elevated white count and leukocytosis. 8. Hypoalbuminemia. 9. Proteinuria. PLAN: At this time, she is going to get a renal biopsy today, which will be attempted by IR. She did have dialysis yesterday, as what I wrote in my note, but the nurses cannot confirm if the patient had dialysis or not. We are going to get a.m. labs. There are still several serologies. SPEP and UPEP are pending. Her anti-GBM is positive, but this would be very difficult to assess considering the patient has no pulmonary etiology like hemoptysis. Her MARTA is also negative, though it is not as sensitive or as specific as any other test. At this time, we are going to just watch it very closely. There is no report in the past of her having any hemoptysis. At this time, she will receive dialysis tomorrow and wait for records from the [facility] as well as Dr. Haas. Job#: [id number]
[2018-08-09] MEDS ORDERED: FENTANYL CITRATE/PF 100MCG/2 ML INJ ONE (11:48)
[2018-08-09] MEDS ORDERED: MIDAZOLAM HCL 2 MG/2 ML VIAL ONE (11:49)
[2018-08-09] MEDS ORDERED: GELATIN SPONGE 12-7MM ONE (12:50)
--- NOTE | 2018-08-09 13:33 | Diagnostic Imaging Report ---
CT guided core biopsy of right kidney Comparison: CT Abdomen/Pelvis 08/04/18. Consent: The nature of the procedure, including its risks, benefits and alternatives was explained to the patient who understood and gave consent. Operators: Marv Miller MD Anesthesia: Intravenous conscious sedation was administered by radiology nursing. Continuous hemodynamic and respiratory monitoring was performed, including the use of pulse oximetry. Sedation start time: 1210 PM Sedation end time: 1 PM Total sedation time: 50 minutes Medications: 10 cc of 1% subcutaneous lidocaine Fentanyl and Versed per nursing administration records TECHNIQUE: Given the patient's obesity and depth of the kidneys, decision made to perform a CT guided biopsy rather than ultrasound guided biopsy. The patient was placed in the prone position. A satisfactory path to the right kidney identified. The skin of the right back was marked, prepped, draped and anesthetized with 1% lidocaine. With CT guidance, a 16 gauge x 16.5 cm introducer needle was inserted into the cortex of the lower pole of the right kidney with one capsular puncture. With CT guidance, four random core biopsies were obtained with an 18 gauge core biopsy device. Gelfoam embolization of the tract was performed and the introducer needle was subsequently removed. Sterile bandage was placed. No evidence of immediate complication. IMPRESSION: CT guided random core biopsy of the right kidney as above. Signed by: Dr. Marv Miller MD on 08/09/2018 1:29 PM
[2018-08-09 14:30] VITALS: BP 132/63
[2018-08-09 16:09] VITALS: BP 121/67
[2018-08-09 20:00] VITALS: BP 129/82
[2018-08-09] MEDS: SODIUM FERRIC GLUCONATE COMPLX 125 MG in SODIUM CHLORIDE 0.9% 100 ML 100 ML IV SCH (21:45)
[2018-08-10] VITALS (9 sets, daily range): BP systolic 135–150; BP diastolic 56–88
[2018-08-10] MEDS: AZTREONAM 1 GM VIAL IV SCH ×3 (04:15→20:30)
[2018-08-10 05:14] LABS: BASOPHILS # (AUTO) 0.2 (0.0-0.1); BASOPHILS % 0.7 % (0.0-1.0); EOSINOPHILS # (AUTO) 1.1 (0.0-0.4); EOSINOPHILS % 5.2 % (0.0-6.0); HEMOGLOBIN 8.6 g/dL (12.0-16.0); LYMPHOCYTES % 4.7 % (18.0-39.1); MEAN CORPUSCULAR HEMOGLOBIN 28.5 pg (28-32); MEAN CORPUSCULAR HGB CONC 31.9 g/dL (31-35); MEAN CORPUSCULAR VOLUME 89.4 fL (81-99); MONOCYTES # (AUTO) 1.4 (0.2-0.8); MONOCYTES % 6.6 % (4.4-11.3); NEUTROPHILS # (AUTO) 14.8 (2.1-6.9); NEUTROPHILS % 71.3 % (38.7-80.0); PLATELET COUNT 203 x10e3/uL (140-360); RED BLOOD COUNT 3.02 x10e6/uL (3.6-5.1); RED CELL DISTRIBUTION WIDTH 14.3 % (11.7-14.4)
[2018-08-10 05:31] LABS: ANION GAP 17.1 mmol/L (8-16); CALCIUM 7.9 mg/dL (8.4-10.2); CREATININE, SERUM 9.26 mg/dL (0.57-1.11); POTASSIUM 4.1 mmol/L (3.5-5.1)
[2018-08-10] MEDS: LEVOTHYROXINE SODIUM 75 MCG TAB PO SCH (05:56)
[2018-08-10 06:41] LABS: BAND NEUTROPHILS % (MANUAL) 4 %; EOSINOPHILS % (MANUAL) 4 % (0-7); LYMPHOCYTES % (MANUAL) 8 % (19-48); METAMYELOCYTES % (MANUAL) 1 % (0-0); MONOCYTES % (MANUAL) 4 % (3.4-9.0); NEUTROPHILS % (MANUAL) 79 % (40-74)
[2018-08-10] MEDS: CALCIUM ACETATE 667 MG GELCAP PO SCH ×3 (08:53→21:00)
[2018-08-10] MEDS: HEPARIN SOD (PORCINE) 5,000 UNIT/ML VIAL SC SCH ×2 (08:53→21:00)
[2018-08-10] MEDS: NIFEDIPINE CR 30 MG TAB PO SCH (08:53)
--- NOTE | 2018-08-10 10:52 | Progress Note ---
DATE: August 10, 2018 NEPHROLOGY PROGRESS NOTE SUBJECTIVE: Patient is doing well with no complaints. She is receiving dialysis as we speak. She still has not made any urine. She did get her renal biopsy done yesterday. OBJECTIVE VITAL SIGNS: Temperature is 96.9, pulse 86, respiratory rate 19, blood pressure 150/78, pulse ox 92% on 2 L nasal cannula. LAB FINDINGS: White count 20, hemoglobin 8.6, hematocrit 27, platelets 203. Chemistry: Sodium 135, potassium 4.1, chloride 97, bicarb 25, anion gap 17, BUN 60, creatinine 9.2, glucose 82. UPEP and SPEP are still all pending. Hepatitis panel is still pending. PHYSICAL EXAMINATION GENERAL: Not in acute distress. Alert and oriented times 3. Cooperative on examination. HEENT: Head is normocephalic and atraumatic. Eyes: Pupils are equal, round and reactive to light bilaterally. Extraocular movements are intact bilaterally. NECK: Supple. Good range of motion. Throat with no evidence of any erythema or exudates in the posterior pharynx. Has poor dentition. PULMONARY: Clear to auscultation bilaterally. No wheezing, no rales, no rhonchi, no crackles appreciated. CARDIOVASCULAR: Positive S1 and S2. No murmurs, rubs or gallops appreciated. ABDOMEN: Soft, nondistended and nontender to palpation. Bowel sounds present. MUSCULOSKELETAL: Strength is 5/5 throughout. No evidence of any muscle deficit on examination. No weakness appreciated. NEUROLOGICAL: Cranial nerves II through XII are grossly intact. No evidence of any neurological deficits on exam. SKIN: Intact. Warm to touch. Good cap refill. PSYCHIATRIC: Normal affect and mood. EXTREMITIES: No edema. Good range of motion throughout. IMPRESSION 1. Metabolic encephalopathy, resolved. 2. Likely end-stage renal disease, now will be dialysis dependent. 3. Iron deficiency anemia. 4. Metabolic acidosis. 5. Mild hyperkalemia. 6. Uremia. 7. Sepsis secondary to underlying infection, unknown etiology, with elevated white count improving. 8. Hypoalbuminemia. 9. Proteinuria. PLAN: The patient had received status post renal biopsy on 08/09/2018. At this time, she will receive dialysis as she is not making any urine. Today is her dialysis day, which I witnessed and was present during the dialysis treatment. She will continue with phos binders and renal diet. We are waiting for an outpatient dialysis unit and chair time. Pending SPEP and UPEP. I am still awaiting records from the outside PCP's office. Job#: [id number]
[2018-08-10 20:10] LABS: ALPHA 2 GLOBULIN URINE PEP 9.5 % (.)
[2018-08-10] MEDS: SODIUM FERRIC GLUCONATE COMPLX 125 MG in SODIUM CHLORIDE 0.9% 100 ML 100 ML IV SCH (20:30)
[2018-08-11] VITALS (8 sets, daily range): BP systolic 148–172; BP diastolic 71–87
[2018-08-11] MEDS: AZTREONAM 1 GM VIAL IV SCH ×3 (04:18→20:45)
[2018-08-11 04:52] LABS: ANION GAP 18.3 mmol/L (8-16); CREATININE, SERUM 8.64 mg/dL (0.57-1.11); POTASSIUM 4.3 mmol/L (3.5-5.1)
[2018-08-11] MEDS: LEVOTHYROXINE SODIUM 75 MCG TAB PO SCH (05:32)
[2018-08-11] MEDS: CALCIUM ACETATE 667 MG GELCAP PO SCH ×3 (09:05→21:30)
[2018-08-11] MEDS: NIFEDIPINE CR 30 MG TAB PO SCH (09:06)
[2018-08-11] MEDS: HEPARIN SOD (PORCINE) 5,000 UNIT/ML VIAL SC SCH ×2 (09:20→21:20)
[2018-08-11] MEDS: FOLIC ACID 1 MG TAB PO SCH (11:51)
--- NOTE | 2018-08-11 11:52 | Progress Note ---
DATE: August 11, 2018 NEPHROLOGY PROGRESS NOTE SUBJECTIVE: Patient is doing well today with no other complaints. She received dialysis yesterday. She is going to be on a Monday, Monday, Monday schedule. She did get a chair time at [facility]. OBJECTIVE VITAL SIGNS: Temperature is 96.8, pulse 87, respiratory rate is 18, blood pressure 169/76, pulse ox 98% on room air. LAB FINDINGS: There is no CBC today, but chemistry shows sodium 136, potassium 4.3, chloride 98, bicarb is 24, anion gap of 18, BUN is 50, her creatinine is 8.6. Folate level is 3, vitamin B12 is 985. PTH level was 383, evidence of chronic disease. UPEP shows no M-spike present and the SPEP seems to be within range. HIV negative. Hepatitis panel is still pending. MICROBIOLOGY: None. IMAGING STUDIES: None. PATHOLOGY: Renal biopsy pending. PHYSICAL EXAMINATION GENERAL: Not in acute distress, alert and oriented x 3, cooperative on examination. HEENT: Head is normocephalic and atraumatic. Eyes: Pupils are equal, round and reactive to light bilaterally. Extraocular movements are intact bilaterally. Throat: No evidence of any erythema or exudates in the posterior pharynx. Has poor dentition. NECK: Supple. Good range of motion. PULMONARY: Clear to auscultation bilaterally. No wheezing, no rales, no rhonchi, no crackles appreciated. CARDIOVASCULAR: Positive S1 and S2. No murmurs, rubs, or gallops appreciated. ABDOMEN: Soft, nondistended, and nontender to palpation. Bowel sounds present. MUSCULOSKELETAL: Strength is 5/5 throughout. No evidence of any muscle deficit on examination. No weakness appreciated. NEUROLOGICAL: Cranial nerves II through XII are grossly intact. No evidence of any neurological deficits on exam. SKIN: Intact. Warm to touch. Good cap refill. PSYCHIATRIC: Normal affect and mood. EXTREMITIES: No edema. Good range of motion throughout. IMPRESSION 1. End-stage renal disease, on hemodialysis on Monday, Monday, Monday schedule. 2. Anemia of end-stage renal disease. 3. Secondary hyperparathyroidism. 4. Iron-deficiency anemia. 5. Folate deficiency. 6. Metabolic acidosis. 7. Sepsis, unknown etiology. 8. Proteinuria. PLAN: So far, all the serologies that have been ordered have been negative. The etiology of her renal failure is unknown, but we had ordered a renal biopsy which is currently pending. She does have an HD chair time which is arranged for Monday, Monday, Monday. She will likely make it through the . She will receive dialysis on Monday. We will replace the folate. We will get a.m. labs otherwise. Job#: [id number] LPA
[2018-08-11] MEDS: SODIUM FERRIC GLUCONATE COMPLX 125 MG in SODIUM CHLORIDE 0.9% 100 ML 100 ML IV SCH (21:00)
[2018-08-12] VITALS (7 sets, daily range): BP systolic 134–176; BP diastolic 74–84
[2018-08-12] MEDS: AZTREONAM 1 GM VIAL IV SCH ×3 (04:15→20:20)
[2018-08-12 04:53] LABS: ANION GAP 18.5 mmol/L (8-16); CALCIUM 8.3 mg/dL (8.4-10.2); CREATININE, SERUM 9.91 mg/dL (0.57-1.11); POTASSIUM 4.5 mmol/L (3.5-5.1)
[2018-08-12] MEDS: LEVOTHYROXINE SODIUM 75 MCG TAB PO SCH (05:41)
[2018-08-12 07:04] LABS: BASOPHILS # (AUTO) 0.1 (0.0-0.1); BASOPHILS % 0.4 % (0.0-1.0); EOSINOPHILS # (AUTO) 1.1 (0.0-0.4); EOSINOPHILS % 6.6 % (0.0-6.0); HEMATOCRIT 26.9 % (34.2-44.1); HEMOGLOBIN 8.5 g/dL (12.0-16.0); LYMPHOCYTES # (AUTO) 1.1 (1.0-3.2); LYMPHOCYTES % 6.3 % (18.0-39.1); MEAN CORPUSCULAR HEMOGLOBIN 28.8 pg (28-32); MEAN CORPUSCULAR HGB CONC 31.6 g/dL (31-35); MEAN CORPUSCULAR VOLUME 91.2 fL (81-99); MONOCYTES # (AUTO) 1.2 (0.2-0.8); MONOCYTES % 6.9 % (4.4-11.3); NEUTROPHILS # (AUTO) 11.6 (2.1-6.9); NEUTROPHILS % 68.9 % (38.7-80.0); PLATELET COUNT 196 x10e3/uL (140-360); RED BLOOD COUNT 2.95 x10e6/uL (3.6-5.1); RED CELL DISTRIBUTION WIDTH 14.2 % (11.7-14.4)
[2018-08-12 08:23] LABS: BAND NEUTROPHILS % (MANUAL) 1 %; EOSINOPHILS % (MANUAL) 5 % (0-7); LYMPHOCYTES % (MANUAL) 6 % (19-48); MONOCYTES % (MANUAL) 5 % (3.4-9.0); NEUTROPHILS % (MANUAL) 83 % (40-74)
[2018-08-12 08:24] LABS: PLATELET ESTIMATE ADEQUATE; PLATELET MORPHOLOGY COMMENT NORMAL; RBC MORPHOLOGY COMMENT NORMAL
[2018-08-12] MEDS: CALCIUM ACETATE 667 MG GELCAP PO SCH ×3 (08:53→21:10)
[2018-08-12] MEDS: FOLIC ACID 1 MG TAB PO SCH (08:53)
[2018-08-12] MEDS: NIFEDIPINE CR 30 MG TAB PO SCH (08:55)
[2018-08-12] MEDS: HEPARIN SOD (PORCINE) 5,000 UNIT/ML VIAL SC SCH ×2 (09:09→22:33)
--- NOTE | 2018-08-12 10:23 | Progress Note ---
DATE: August 12, 2018 NEPHROLOGY PROGRESS NOTE SUBJECTIVE: Patient is doing well today, with no other complaints. She is still not making any urine, she is anuric. OBJECTIVE VITAL SIGNS: Temperature is 98.4, pulse 84, respiratory rate is 18, blood pressure is 130/82, and pulse ox 95% on room air. GENERAL: Not in acute distress, alert and oriented x3, cooperative on examination. HEENT: Head normocephalic, atraumatic. Eyes; pupils equal, round, and reactive to light bilaterally. Extraocular movements are intact bilaterally. Throat; no evidence of any erythema or exudates in the posterior pharynx. Has poor dentition. NECK: Supple with good range of motion. PULMONARY: Clear to auscultation bilaterally. No wheezing, no rales, no rhonchi, no crackles appreciated. CARDIOVASCULAR: Positive S1 and S2. No murmurs, rubs, or gallops appreciated. ABDOMEN: Soft, nondistended, nontender to palpation. Bowel sounds present. MUSCULOSKELETAL: Strength is 5/5 throughout. No evidence of any muscle deficit on examination. No weakness appreciated. NEUROLOGICAL: Cranial nerves II through XII are grossly intact. No evidence of any neurological deficits on exam. SKIN: Intact. Warm to touch. Good cap refill. PSYCHIATRIC: Normal affect and mood. EXTREMITIES: No edema. Good range of motion throughout. LAB FINDINGS: Show white count 16.8, hemoglobin 8.5, hematocrit is 26.9, and platelets of 196. Chemistry; sodium 133, potassium 4.5, chloride 98, bicarb 21, anion gap of 18, BUN 27, creatinine is 9.9, glucose is 79, calcium is 8.3. Renal biopsy is pending. MICROBIOLOGY: Blood and urine cultures were negative. PATHOLOGY: Report is still pending. IMAGING STUDIES: None. IMPRESSION 1. End-stage renal disease, on hemodialysis on Monday, Monday, and Monday. 2. Anemia of end-stage renal disease. 3. Secondary hyperparathyroidism. 4. Iron-deficiency anemia. 5. Folate deficiency. 6. Metabolic acidosis. 7. Sepsis with unknown etiology with leukocytosis, improving. 8. Proteinuria. PLAN: So far, all serologies have come back to be negative. Her renal failure etiology is unknown, but we are waiting for renal biopsy pathology report. She does have a chair time for Monday, Monday, and Monday for an outpatient dialysis unit at [facility]. She will receive dialysis tomorrow. We are going to get a.m. labs as well. We will continue with folate as well. Job#: [id number] KEIKO
[2018-08-12] MEDS: DIPHENHYDRAMINE HCL 25 MG CAP PO PRN ×2 (15:33→23:47)
[2018-08-12] MEDS: LORATADINE 10 MG TAB PO SCH (15:33)
[2018-08-13] VITALS (8 sets, daily range): BP systolic 142–161; BP diastolic 73–89
[2018-08-13] MEDS: AZTREONAM 1 GM VIAL IV SCH ×3 (04:02→20:55)
[2018-08-13 04:12] LABS: BASOPHILS # (AUTO) 0.1 (0.0-0.1); BASOPHILS % 0.4 % (0.0-1.0); EOSINOPHILS # (AUTO) 1.1 (0.0-0.4); EOSINOPHILS % 7.1 % (0.0-6.0); HEMATOCRIT 26.2 % (34.2-44.1); HEMOGLOBIN 8.3 g/dL (12.0-16.0); LYMPHOCYTES # (AUTO) 1.6 (1.0-3.2); LYMPHOCYTES % 9.8 % (18.0-39.1); MEAN CORPUSCULAR HEMOGLOBIN 28.6 pg (28-32); MEAN CORPUSCULAR HGB CONC 31.7 g/dL (31-35); MEAN CORPUSCULAR VOLUME 90.3 fL (81-99); MONOCYTES # (AUTO) 1.1 (0.2-0.8); MONOCYTES % 6.9 % (4.4-11.3); NEUTROPHILS # (AUTO) 10.8 (2.1-6.9); NEUTROPHILS % 67.6 % (38.7-80.0); PLATELET COUNT 206 x10e3/uL (140-360); RED CELL DISTRIBUTION WIDTH 14.2 % (11.7-14.4)
[2018-08-13 04:27] LABS: ANION GAP 18.8 mmol/L (8-16); CALCIUM 8.3 mg/dL (8.4-10.2); CREATININE, SERUM 11.22 mg/dL (0.57-1.11); POTASSIUM 4.8 mmol/L (3.5-5.1)
[2018-08-13] MEDS: LEVOTHYROXINE SODIUM 75 MCG TAB PO SCH (05:51)
[2018-08-13 06:25] LABS: BAND NEUTROPHILS % (MANUAL) 1 %; EOSINOPHILS % (MANUAL) 3 % (0-7); LYMPHOCYTES % (MANUAL) 12 % (19-48); METAMYELOCYTES % (MANUAL) 1 % (0-0); MONOCYTES % (MANUAL) 9 % (3.4-9.0); MYELOCYTES % (MANUAL) 2 % (0-0); NEUTROPHILS % (MANUAL) 71 % (40-74); PLATELET ESTIMATE ADEQUATE; PLATELET MORPHOLOGY COMMENT NORMAL; RBC MORPHOLOGY COMMENT NORMAL
[2018-08-13 06:26] LABS: ANISOCYTOSIS SLIGHT; HYPOCHROMASIA SLIGHT
[2018-08-13] MEDS: CALCIUM ACETATE 667 MG GELCAP PO SCH ×3 (09:00→20:55)
[2018-08-13] MEDS: FOLIC ACID 1 MG TAB PO SCH (10:00)
[2018-08-13] MEDS: LORATADINE 10 MG TAB PO SCH (10:00)
[2018-08-13] MEDS: NIFEDIPINE CR 30 MG TAB PO SCH (10:00)
--- NOTE | 2018-08-13 10:16 | Progress Note ---
DATE: August 13, 2018 NEPHROLOGY PROGRESS NOTE SUBJECTIVE: Patient doing well today with no complaints. Her temporary dialysis catheter has clotted, and she is scheduled to have a tunneled permanent catheter later today. Renal biopsy is still pending. Still anuric and not making any urine. OBJECTIVE VITAL SIGNS: Temperature is 97.9, pulse 93, respiratory rate is 19, blood pressure 143/73, pulse ox 93% on room air. GENERAL: Not in acute distress. Alert and oriented times 3. Cooperative on examination. HEENT: Head is normocephalic and atraumatic. Eyes: Pupils equal, round and reactive to light bilaterally. Extraocular movements intact bilaterally. NECK: Supple. Good range of motion. Throat with no evidence of any erythema or exudates in the posterior pharynx. Has poor dentition. PULMONARY: Clear to auscultation bilaterally. No wheezing. No rales. No rhonchi. No crackles appreciated. CARDIOVASCULAR: Positive S1 and S2. No murmurs, rubs or gallops appreciated. ABDOMEN: Soft, nondistended and nontender to palpation. Bowel sounds present. MUSCULOSKELETAL: Strength is 5/5 throughout. No evidence of any muscle deficit on examination. No weakness appreciated. NEUROLOGICAL: Cranial nerves II-XII are grossly intact. No evidence of any neurological deficits on exam. SKIN: Intact. Warm to touch. Good cap refill. PSYCHIATRIC: Normal affect and mood. EXTREMITIES: No edema. Good range of motion throughout. LAB FINDINGS: Show white count is 15, hemoglobin 8.3, hematocrit is 26, and platelets of 206,000. Chemistry: Sodium is 133, potassium 4.8, chloride 96, bicarb 23, anion gap of 18, BUN 65, creatinine is 11.2. Calcium is 8.3. Urinalysis none. Renal biopsy pathology is still pending. IMPRESSION 1. End-stage renal disease: On dialysis on Monday, Monday and Monday. 2. Anemia of end-stage renal disease. 3. Secondary hyperparathyroidism. 4. Iron deficiency anemia. 5. Folate deficiency. 6. Metabolic acidosis. 7. Sepsis of unknown etiology, improving. 8. Proteinuria. PLAN: So far, serology has come back to be negative. Renal failure etiology is unknown. Pending pathology report from renal biopsy. Today, her dialysis catheter clotted, which is a temporary catheter. She is scheduled to have an exchange with a dialysis tunneled catheter, which will be permanent. She will likely receive dialysis tomorrow off her schedule, and then she will go home and follow up on her Monday, Monday and Monday schedule at [facility]. Otherwise, will continue same plan of care. Job#: [id number] RI
[2018-08-13] MEDS ORDERED: FENTANYL CITRATE/PF 100MCG/2 ML INJ ONE (17:20)
[2018-08-13] MEDS ORDERED: MIDAZOLAM HCL 2 MG/2 ML VIAL ONE (17:21)
[2018-08-13] MEDS ORDERED: HEPARIN SOD (PORCINE) 1000 UNIT/ML 30ML ONE (18:11)
[2018-08-13] MEDS: ACETAMINOPHEN 325 MG TAB PO PRN (20:55)
[2018-08-14] VITALS: BP 142/82
[2018-08-14] MEDS: DIPHENHYDRAMINE HCL 25 MG CAP PO PRN (02:50)
[2018-08-14 04:00] VITALS: BP 166/89
[2018-08-14] MEDS: AZTREONAM 1 GM VIAL IV SCH ×2 (04:16→12:00)
[2018-08-14] MEDS: ACETAMINOPHEN 325 MG TAB PO PRN (04:16)
[2018-08-14] MEDS: LEVOTHYROXINE SODIUM 75 MCG TAB PO SCH (06:11)
[2018-08-14] MEDS: FOLIC ACID 1 MG TAB PO SCH (08:20)
[2018-08-14] MEDS: NIFEDIPINE CR 30 MG TAB PO SCH (08:20)
[2018-08-14] MEDS: CALCIUM ACETATE 667 MG GELCAP PO SCH ×2 (08:20→16:10)
[2018-08-14] MEDS: LORATADINE 10 MG TAB PO SCH (08:20)
[2018-08-14 08:21] VITALS: BP 137/75
--- NOTE | 2018-08-14 09:22 | Progress Note ---
DATE: August 14, 2018 NEPHROLOGY PROGRESS NOTE SUBJECTIVE: Patient is doing well today with no complaints. She had her tunneled dialysis catheter exchanged yesterday. She is scheduled for dialysis later today. OBJECTIVE VITAL SIGNS: Temperature is 96.8, pulse 95, respiratory rate 20, blood pressure 137/75, pulse ox 99% on room air. LAB FINDINGS: White count 15.8, hemoglobin 8.3, hematocrit 26, platelets 206. Chemistries: Sodium 133, potassium 4.8, chloride 96, bicarb 23, anion gap 18, BUN 65, creatinine 11.2. Still the pathology is pending. Hepatitis panel was found to be negative. MICROBIOLOGY: None. IMAGING STUDIES: None. PHYSICAL EXAMINATION GENERAL: Not in acute distress. Alert and oriented times 3. Cooperative on examination. HEENT: Head is normocephalic and atraumatic. Eyes: Pupils equal, round and reactive to light bilaterally. Extraocular movements intact bilaterally. NECK: Supple. Good range of motion. Throat with no evidence of any erythema or exudates in the posterior pharynx. Has poor dentition. PULMONARY: Clear to auscultation bilaterally. No wheezing. No rales. No rhonchi. No crackles appreciated. CARDIOVASCULAR: Positive S1 and S2. No murmurs, rubs or gallops appreciated. ABDOMEN: Soft, nondistended and nontender to palpation. Bowel sounds present. MUSCULOSKELETAL: Strength is 5/5 throughout. No evidence of any muscle deficit on examination. No weakness appreciated. NEUROLOGICAL: Cranial nerves II through XII are grossly intact. No evidence of any neurological deficits on exam. SKIN: Intact. Warm to touch. Good cap refill. PSYCHIATRIC: Normal affect and mood. EXTREMITIES: No edema. Good range of motion throughout. IMPRESSION 1. End-stage renal disease. On dialysis Monday, Monday and Monday. 2. Secondary hyperparathyroidism. 3. Iron deficiency anemia. 4. Folate deficiency. 5. Metabolic acidosis. 6. Sepsis, all improved. 8. Proteinuria of unknown etiology. PLAN: At this time, she will receive dialysis as she did not receive dialysis yesterday. We are still waiting on the pathology report from the renal biopsy. I am going to discuss this with the nurse and check into this. Unsure why it is taking so long for results. After she leaves today, she is able to go on her dialysis schedule on Monday, Monday and Monday. She already has it scheduled at [facility]. Today, she does need dialysis. Otherwise, we will continue to follow if she is still here. Job#: [id number]
[2018-08-14 10:05] VITALS: BP 137/75
[2018-08-14] MEDS ORDERED: SODIUM CHLORIDE 0.9% 250ML 500 ML IV PRN (11:45)
[2018-08-14] MEDS ORDERED: HEPARIN SOD (PORCINE) 1000 UNIT/ML SDV IV PRN (11:45)
[2018-08-14 12:09] VITALS: BP 152/79
[2018-08-14 16:25] VITALS: BP 137/72
[2018-08-14] MEDS ORDERED: LORATADINE10 MG PO (17:12)
[2018-08-14] MEDS ORDERED: CLARITIN-D 241 EACH PO (17:12)
[2018-08-14] MEDS ORDERED: LEVOTHYROXINE75 MCG PO (17:13)
[2018-08-14] MEDS ORDERED: FOLIC ACID1 MG PO (17:14)
[2018-08-14] MEDS ORDERED: NIFEDIPINE ER30 M1 PO (17:14)
--- NOTE | 2018-08-15 10:35 | Diagnostic Imaging Report ---
PROCEDURE:US GUIDANCE FOR VASCULAR ACCESS COMPARISON:None. INDICATIONS:hd tunnelled rt ijv FINDINGS:Ultrasound evaluation of potential access sites was performed. After successfully identifying a patent vessel, US guidance was used to puncture the right internal jugular vein for tunneled hemodialysis catheter placement. CONCLUSION: Ultrasound guided access of the right internal jugular vein for tunneled hemodialysis catheter placement. Please refer to the procedural dictation for further details. Dictated by: JOSEPH SÁNCHEZ M.D. on 08/15/2018 at 10:44 Electronically approved by: JOSEPH SÁNCHEZ M.D. on 08/15/2018 at 10:44
--- NOTE | 2018-08-15 15:22 | Diagnostic Imaging Report ---
PROCEDURE: PLACEMENT OF RIGHT IJ TUNNELED HEMODIALYSIS CATHETER AND REMOVAL OF RIGHT IJ NON TUNNELED HEMODIALYSIS CATHETER. INDICATION: Need for intermediate dialysis access. OPERATORS: Marv Miller MD RADIATION EXPOSURE: Fluoroscopy Time: 1 minute Total dose: 7.82 mGy CONSENT: The patient was informed of the nature of the proposed procedure. The purposes, alternatives, risks, and benefits were explained and discussed. All questions were answered and written consent was obtained. ANESTHESIA: Moderate, continuous hemodynamic monitoring was performed. MEDICATIONS: 15 cc of 1% subcutaneous lidocaine Fentanyl and Versed per nursing administration records. TECHNIQUE: The patient was brought to the angiography suite, and the right neck and upper chest were prepped and draped in standard sterile fashion. All elements of maximal sterile barrier technique were followed including cap and mask, sterile gown, sterile gloves, large sterile sheet, hand hygiene and 2% chlorhexidine for cutaneous antisepsis. Pre-procedure time-out confirmed the patient identity and the procedure to be performed. Initial outdoor pursuits instructor image demonstrated an existing right IJ non-tunneled hemodialysis catheter with tip near the cavoatrial junction. Using standard sterile technique, 1 % lidocaine was administered subcutaneously for local anesthesia. Ultrasound demonstrated that the right internal jugular vein was patent and compressible. Under continuous sonographic guidance, the right internal jugular vein was accessed using a 21 G micropuncture needle. The access needle was exchanged for a 5 Fr micropuncture sheath. An 0.035'' Amplatz wire was advanced into the IVC to secure access. The venotomy site was dilated. Appropriate measurements were made using the 8 Fr dilator. Attention was then turned towards the subcutaneous tunnel. After administration of 1% lidocaine subcutaneously for local anesthesia, a 16 Fr x 23 cm hemodialysis catheter was tunneled in an antegrade direction from skin exit site to venotomy site. The dilator was exchanged for the peel-away sheath under direct fluoroscopic visualization. The catheter was then advanced through the peel-away sheath into the superior vena cava. After confirming appropriate position with fluoroscopy the catheter tip in the right atrium, the peel-away sheath was removed, and both lumens aspirated, check flushed, and terminally flushed with 2 cc each of heparin solution (1000 units/cc of heparin). The catheter was secured using 3-0 Ethilon pursestring suture at the catheter exit site and also 3-0 Ethilon sutures at the catheter hub. The venotomy site was closed with a single subcutaneous Vicryl suture, Dermabond, and steri-strips. Subsequently, the right IJ non-tunneled hemodialysis catheter was removed after cutting the sutures and hemostasis achieved. Sterile dressings were applied. The patient tolerated the procedure well without immediate complication and was transported back to the floor in stable condition. FINDINGS: 1. Patent and compressible right IJV accessed with continuous ultrasound guidance. 2. Placement of 16 Fr x 23 cm tunneled right IJV hemodialysis catheter. 3. Post-procedure intraprocedural chest radiograph showed the catheter tip in the proximal right atrium, no kinks along course of catheter, and no pneumothorax. Catheter is ready for use. 4. Non-tunneled right IJ hemodialysis catheter removed with hemostasis achieved. IMPRESSION: Placement of right IJ tunneled hemodialysis catheter. Catheter is ready for immediate use. Non-tunneled right IJ hemodialysis catheter removed. Signed by: Dr. Marv Miller MD on 08/15/2018 3:19 PM
== END 2018-08-14 18:15 | disposition home or self-care (01) | DRG 871 ==
LOC: ER 11:44 → ERHOLD 16:53 → ICU 18:27 → MED/SURG2 08-06 18:45
PROVIDERS: ADMIT Internal Medicine; ATTEND Internal Medicine
PROC: 02HV33Z Insertion of Infusion Device into Superior Vena Cava, Percutaneous Approach (ICD-10-PCS; principal; 2018-08-04)
PROC: 5A1D70Z Performance of Urinary Filtration, Intermittent, Less than 6 Hours Per Day (ICD-10-PCS; 2018-08-04)
PROC: 5A1D70Z Performance of Urinary Filtration, Intermittent, Less than 6 Hours Per Day (ICD-10-PCS; 2018-08-05)
PROC: 30243N1 Transfusion of Nonautologous Red Blood Cells into Central Vein, Percutaneous Approach (ICD-10-PCS; 2018-08-05)
PROC: 5A1D70Z Performance of Urinary Filtration, Intermittent, Less than 6 Hours Per Day (ICD-10-PCS; 2018-08-06)
PROC: 5A1D70Z Performance of Urinary Filtration, Intermittent, Less than 6 Hours Per Day (ICD-10-PCS; 2018-08-07)
PROC: 0TB03ZX Excision of Right Kidney, Percutaneous Approach, Diagnostic (ICD-10-PCS; 2018-08-09)
PROC: 5A1D70Z Performance of Urinary Filtration, Intermittent, Less than 6 Hours Per Day (ICD-10-PCS; 2018-08-10)
PROC: 5A1D70Z Performance of Urinary Filtration, Intermittent, Less than 6 Hours Per Day (ICD-10-PCS; 2018-08-13)
PROC: 0JH63XZ Insertion of Tunneled Vascular Access Device into Chest Subcutaneous Tissue and Fascia, Percutaneous Approach (ICD-10-PCS; 2018-08-13)
PROC: 02HV33Z Insertion of Infusion Device into Superior Vena Cava, Percutaneous Approach (ICD-10-PCS; 2018-08-13)
PROC: B5181ZA Fluoroscopy of Superior Vena Cava using Low Osmolar Contrast, Guidance (ICD-10-PCS; 2018-08-13)
PROC: 05PYX3Z Removal of Infusion Device from Upper Vein, External Approach (ICD-10-PCS; 2018-08-13)
PROC: 5A1D70Z Performance of Urinary Filtration, Intermittent, Less than 6 Hours Per Day (ICD-10-PCS; 2018-08-14)
DX: A41.9 Sepsis, unspecified organism (principal); N18.6 End stage renal disease; G93.41 Metabolic encephalopathy; N17.9 Acute kidney failure, unspecified; E87.2 Acidosis; I12.0 Hypertensive chronic kidney disease with stage 5 chronic kidney disease or end stage renal disease; N10 Acute pyelonephritis; Z68.43 Body mass index [BMI] 50.0-59.9, adult; E87.5 Hyperkalemia; E03.9 Hypothyroidism, unspecified; Z99.2 Dependence on renal dialysis; I16.0 Hypertensive urgency; Z79.52 Long term (current) use of systemic steroids; D50.9 Iron deficiency anemia, unspecified; D52.9 Folate deficiency anemia, unspecified; R65.20 Severe sepsis without septic shock; E88.09 Other disorders of plasma-protein metabolism, not elsewhere classified; R80.9 Proteinuria, unspecified; E66.01 Morbid (severe) obesity due to excess calories; M54.5 Low back pain; G89.29 Other chronic pain; Z91.19 Patient's noncompliance with other medical treatment and regimen; T42.6X5A Adverse effect of other antiepileptic and sedative-hypnotic drugs, initial encounter
CPT/HCPCS: 36415; 36558; 36600; 50200; 51700; 70450; 71045; 74176; 74470; 76770; 76937; 77001; 77012; 80048; 80053; 80061; 80307; 81001; 81025; 82044; 82140; 82306; 82570; 82607; 82728; 82746; 82805; 83036; 83520; 83540; 83605; 83970; 84100; 84156; 84165; 84166; 84443; 84466; 85025; 85610; 85651; 85730; 86021; 86039; 86160; 86225; 86704; 86706; 86850; 86900; 86920; 86922; 87040; 87086; 87340; 87390; 90962; 93005; 99152; 99153; 99284; C1769; G0433; G0435; J0360; J0610; J0696; J1644; J2001; J2150; J2250; J2270; J2405; J2916; J7030; J7050; J7070; P9016

== ENCOUNTER 2018-08-20 23:02 | Emergency (ER) | payer MEDICARE, OTHER ==
[~2018-08-20] VITALS: Ht 162.6 cm; Wt 141.5 kg
[~2018-08-20 23:02] MED LIST: BACLOFEN10 MG PO; CLARITIN-D 241 EACH PO; FOLIC ACID1 MG PO; GABAPENTIN300 MG PO; LEVOTHYROXINE50 MCG PO; LEVOTHYROXINE75 MCG PO; LORATADINE10 MG PO; NIFEDIPINE ER30 M1 PO; TYLENOL WITH C1 EACH PO
[2018-08-20] MEDS ORDERED: ONDANSETRON HCL 4 MG ORAL DISINTEGRATING TAB PO ONE (23:30)
[2018-08-20] MEDS ORDERED: METOPROLOL TARTRATE 50 MG TAB PO ONE (23:30)
[2018-08-21] MEDS ORDERED: ZOFRAN ODT4 MG PO (00:18)
== END 2018-08-21 00:29 | disposition home or self-care (01) ==
LOC: FSED 23:02
DX: G44.1 Vascular headache, not elsewhere classified (principal); I12.0 Hypertensive chronic kidney disease with stage 5 chronic kidney disease or end stage renal disease; N18.6 End stage renal disease; Z99.2 Dependence on renal dialysis; Z88.0 Allergy status to penicillin; Z87.891 Personal history of nicotine dependence; G44.89 Other headache syndrome
CPT/HCPCS: 99283

== ENCOUNTER 2019-01-13 13:49 | Emergency (ER) | payer OTHER ==
[~2019-01-13] VITALS: Ht 162.6 cm; Wt 141.5 kg
[~2019-01-13 13:49] MED LIST changes: +ZOFRAN ODT4 MG PO
[2019-01-13] MEDS ORDERED: NIFEDIPINE 10 MG CAP PO NR (14:29)
--- NOTE | 2019-01-13 14:55 | Diagnostic Imaging Report ---
A single frontal view of the chest. HISTORY: Hard to breathe COMPARISON: None available. DISCUSSION: Portable technique, limits sensitivity of the exam. Soft tissue attenuation partially limits sensitivity of the exam. Overlying monitoring leads. Tubes/Lines: A dual lumen dialysis catheter, the tip projects near the cavoatrial junction. Lungs and pleura: Prominence of the peribronchial interstitial markings. No evidence of a consolidative pneumonia or pulmonary alveolar edema. No definite pleural effusion or pneumothorax is identified. Heart and mediastinum: The cardiomediastinal silhouette appears unremarkable. Bones and soft tissues: Appear unremarkable, given this limited exam. IMPRESSION: 1. Findings which can be seen in the setting of a nonspecific bronchitis. 2. No consolidative pneumonia. Signed by: Dr. José Miguel Sanchez D.O., M.M.M. on 01/13/2019 2:51 PM
[2019-01-13 14:57] LABS: BASOPHILS % 0.3 % (0.0-1.0); EOSINOPHILS # (AUTO) 0.5 (0.0-0.4); EOSINOPHILS % 5.3 % (0.0-6.0); HEMOGLOBIN 10.5 g/dL (12.0-16.0); LYMPHOCYTES # (AUTO) 1.4 (1.0-3.2); MEAN CORPUSCULAR HEMOGLOBIN 30.4 pg (28-32); MEAN CORPUSCULAR HGB CONC 31.8 g/dL (31-35); MEAN CORPUSCULAR VOLUME 95.7 fL (81-99); MONOCYTES # (AUTO) 0.6 (0.2-0.8); MONOCYTES % 6.4 % (4.4-11.3); NEUTROPHILS # (AUTO) 6.6 (2.1-6.9); NEUTROPHILS % 72.7 % (38.7-80.0); PLATELET COUNT 258 x10e3/uL (140-360); RED BLOOD COUNT 3.45 x10e6/uL (3.6-5.1); RED CELL DISTRIBUTION WIDTH 14.3 % (11.7-14.4)
[2019-01-13 15:07] LABS: INR 1.05; PROTHROMBIN TIME 14.2 seconds (11.9-14.5)
[2019-01-13 15:08] LABS: PARTIAL THROMBOPLASTIN TIME 36.5 seconds (23.8-35.5)
[2019-01-13 15:17] LABS: ALBUMIN 3.3 g/dL (3.5-5.0); ALBUMIN/GLOBULIN RATIO 0.9 (0.8-2.0); ANION GAP 14.5 mmol/L (8-16); CALCIUM 9.4 mg/dL (8.4-10.2); CREATININE, SERUM 8.08 mg/dL (0.57-1.11); MAGNESIUM 1.9 MG/DL (1.3-2.1); POTASSIUM 4.5 mmol/L (3.5-5.1)
[2019-01-13 15:23] LABS: CREATINE KINASE MB 0.7 ng/mL (0-5.0)
== END 2019-01-13 16:06 | disposition home or self-care (01) ==
LOC: ER 13:49
DX: R06.09 Other forms of dyspnea (principal); R05 Cough; J20.9 Acute bronchitis, unspecified; I12.0 Hypertensive chronic kidney disease with stage 5 chronic kidney disease or end stage renal disease; N18.6 End stage renal disease; Z99.2 Dependence on renal dialysis; K21.9 Gastro-esophageal reflux disease without esophagitis; F41.9 Anxiety disorder, unspecified; E66.01 Morbid (severe) obesity due to excess calories
CPT/HCPCS: 36415; 71045; 80053; 82550; 82553; 83735; 83880; 84484; 85025; 85610; 85730; 93005; 99283

== ENCOUNTER 2019-08-10 18:24 | Emergency (ER) | payer OTHER ==
[~2019-08-10] VITALS: Ht 162.6 cm; Wt 130.6 kg
[2019-08-10] MEDS ORDERED: DEXAMETHASONE SOD PHOS 10 MG/1 ML VIAL IM ONE (19:15)
[2019-08-10] MEDS ORDERED: CLONIDINE HCL 0.1 MG TAB ONE (19:29)
[2019-08-10] MEDS ORDERED: DEXAMETHASONE SOD PHOS 10 MG/1 ML VIAL ONE (19:30)
[2019-08-10] MEDS ORDERED: CLONIDINE HCL 0.2 MG TAB PO NR (19:30)
[2019-08-10 19:34] VITALS: BP 171/92
== END 2019-08-10 19:44 | disposition home or self-care (01) ==
LOC: FSED 18:24
DX: J30.2 Other seasonal allergic rhinitis (principal); I12.0 Hypertensive chronic kidney disease with stage 5 chronic kidney disease or end stage renal disease; N18.6 End stage renal disease; Z99.2 Dependence on renal dialysis; E66.01 Morbid (severe) obesity due to excess calories; Z68.42 Body mass index [BMI] 45.0-49.9, adult; G62.9 Polyneuropathy, unspecified
CPT/HCPCS: 96372; 99283; J1100

== ENCOUNTER 2025-04-24 02:11 | Emergency (ER) | payer OTHER ==
[~2025-04-24] VITALS: Ht 162.6 cm; Wt 94.8 kg
[2025-04-24 05:20] VITALS: PULSE 88; RESP 18; TEMP 98.2
[2025-04-24 05:22] VITALS: BP 139/89; PULSE 88; RESP 18; TEMP 98.2; O2SAT 97
== END 2025-04-24 05:23 | disposition home or self-care (01) ==
LOC: FSED 02:24
DX: R20.2 Paresthesia of skin (principal); M54.12 Radiculopathy, cervical region; I12.0 Hypertensive chronic kidney disease with stage 5 chronic kidney disease or end stage renal disease; N18.6 End stage renal disease; Z99.2 Dependence on renal dialysis; E66.01 Morbid (severe) obesity due to excess calories
CPT/HCPCS: 93971; 99284